=== PATIENT | male | born 1955 | race Caucasian/White ===

== ENCOUNTER 2018-01-29 02:40 | Inpatient (IN) | payer MEDICARE, MEDICAID, OTHER ==
[~2018-01-29] VITALS: Ht 177.8 cm; Wt 72.7 kg
[~2018-01-29 02:40] MED LIST: ADV50100 IH; AZI25OT PO; BUSP10TA11 PO; PRED20TA PO; SIMBICORT; albuterol neb
[2018-01-29] MEDS ORDERED: methylPREDNISolone sod succ 125mg/2ml vial IV ONE (02:55)
[2018-01-29] MEDS ORDERED: albuterol 2.5 MG/3 ML nebule CONTNEB PRN (02:55)
[2018-01-29] MEDS ORDERED: azithromycin/NS 500mg/250ml 250 ML IV ONE (02:55)
[2018-01-29 03:10] LABS: ABG BASE EXCESS 0.5 mmol/L (-2.0-3.0); ABG HCO3 25.5 mmol/L (22.0-26.0); ABG OXYGEN SATURATION 96.2 % (95-98); ABG PCO2 (T) 42.5 mmHg (35.0-48.0); ABG PH (T) 7.396 (7.350-7.450); ABG PO2 (T) 82.6 mmHg (83-108); ALLEN'S TEST Positive; FCOHb 3.6 % (0.5-1.5); FMetHb 0.2 % (0.3-1.12); FO2Hb 92.5 % (94-100); RESPIRATORY RATE (OBSERVED) 22 b/min
[2018-01-29 03:29] LABS: BASOPHILS # (AUTO) 0.1 X10'3 (0-0.2); BASOPHILS % (AUTO) 0.3 % (0-1); EOSINOPHILS # (AUTO) 0.2 X10'3 (0-0.9); EOSINOPHILS % (AUTO) 1.3 % (0-6); HEMATOCRIT 39.3 % (42.0-52.0); HEMOGLOBIN 13.6 g/dl (14.0-17.9); LYMPHOCYTES # (AUTO) 1.8 X10'3 (1.1-4.8); LYMPHOCYTES % (AUTO) 9.3 % (21-51); MEAN CORPUSCULAR HEMOGLOBIN 31.4 PG (27.0-31.0); MEAN CORPUSCULAR HGB CONC 34.5 % (33.0-36.5); MEAN PLATELET VOLUME 8.2 FL (7.4-10.4); MONOCYTES % (AUTO) 5.2 % (2-12); NEUTROPHILS # (AUTO) 16.4 X10'3 (1.8-7.7); NEUTROPHILS % (AUTO) 83.9 % (42-75); PLATELET COUNT 254 X10'3 (140-440); RED BLOOD COUNT 4.32 X10'6 (4.70-6.10); RED CELL DISTRIBUTION WIDTH 15.4 % (11.5-14.5); WHITE BLOOD COUNT 19.5 X10'3 (4.5-11.0)
[2018-01-29] MEDS ORDERED: ondansetron/PF 4mg/2ml inj IV ONE (03:35)
[2018-01-29 03:53] LABS: ALANINE AMINOTRANSFERASE 25 U/L (12-78); ALBUMIN 3.6 G/DL (3.4-5.0); ALBUMIN/GLOBULIN RATIO 1.1 (1.1-1.5); ALKALINE PHOSPHATASE 101 IU/L (46-116); ANION GAP 9 (8-16); ASPARTATE AMINO TRANSFERASE 15 U/L (10-37); BILIRUBIN,TOTAL 0.6 MG/DL (0.1-1.0); BLOOD UREA NITROGEN 15 MG/DL (7-18); BUN/CREATININE RATIO 18.1 (5.4-32.0); CALCIUM 9.4 MG/DL (8.5-10.1); CHLORIDE 102 MMOL/L (99-107); CREATININE 0.83 MG/DL (0.60-1.10); GLUCOSE 122 MG/DL (70-104); POTASSIUM 4.4 MMOL/L (3.5-5.1); SODIUM 138 MMOL/L (135-145); TOTAL CARBON DIOXIDE 27.2 MMOL/L (24-32); TOTAL PROTEIN 6.8 G/DL (6.4-8.2); eGFR > 90 ML/MIN
[2018-01-29 04:18] LABS: URINE AMPHETAMINE SCREEN NEGATIVE (Neg); URINE BARBITUATE SCREEN NEGATIVE (Neg); URINE BENZODIAZEPINES SCREEN NEGATIVE (Neg); URINE CANNABINOID SCREEN NEGATIVE (Neg); URINE COCAINE SCREEN NEGATIVE (Neg); URINE METHADONE SCREEN NEGATIVE (Neg); URINE OPIATE SCREEN NEGATIVE (Neg); URINE PHENCYCLIDINE SCREEN NEGATIVE (Neg)
[2018-01-29] MEDS ORDERED: magnesium hydroxide 30ml (MOM) UD suspension PO PRN (05:05)
[2018-01-29] MEDS ORDERED: mag hydrox/Alum hydrox/simeth 30ml oral suspension PO PRN (05:05)
[2018-01-29] MEDS ORDERED: ondansetron/PF 4mg/2ml inj IV PRN (05:05)
[2018-01-29] MEDS ORDERED: acetaminophen 325mg tablet PO PRN (05:05)
[2018-01-29] MEDS: methylPREDNISolone sod succ 125mg/2ml vial IV SCH ×3 (08:00→20:16)
[2018-01-29] MEDS: enoxaparin 40mg/0.4ml syringe SUBCUT SCH (08:01)
[2018-01-29] MEDS: ipratropium/albuterol 3ml nebule NEB PRN (10:28)
[2018-01-29] MEDS: ALPRAZolam 0.25mg tablet PO PRN ×2 (10:35→17:16)
[2018-01-29 15:48] VITALS: BP 129/75
[2018-01-29 19:30] VITALS: BP 108/71
[2018-01-29] MEDS: acetaminophen 325mg tablet PO PRN (20:32)
[2018-01-29] MEDS ORDERED: nicotine 7mg patch - 24hr TD SCH (21:00)
[2018-01-29] MEDS ORDERED: HYDROcodone/acetaminophen 10/325mg tab PO ONE (23:45)
[2018-01-30] VITALS: BP 105/39
[2018-01-30] MEDS: ipratropium/albuterol 3ml nebule NEB PRN ×2 (01:00→14:02)
[2018-01-30] MEDS: methylPREDNISolone sod succ 125mg/2ml vial IV SCH ×2 (01:37→07:23)
[2018-01-30 05:11] LABS: BASOPHILS # (AUTO) 0.1 X10'3 (0-0.2); BASOPHILS % (AUTO) 0.3 % (0-1); EOSINOPHILS % (AUTO) 0 % (0-6); HEMATOCRIT 38.1 % (42.0-52.0); HEMOGLOBIN 12.9 g/dl (14.0-17.9); LYMPHOCYTES % (AUTO) 5.1 % (21-51); MEAN CORPUSCULAR HEMOGLOBIN 31.1 PG (27.0-31.0); MEAN CORPUSCULAR HGB CONC 33.8 % (33.0-36.5); MEAN CORPUSCULAR VOLUME 91.9 FL (78-98); MEAN PLATELET VOLUME 8.7 FL (7.4-10.4); MONOCYTES # (AUTO) 0.2 X10'3 (0-0.9); MONOCYTES % (AUTO) 1.2 % (2-12); NEUTROPHILS # (AUTO) 17.8 X10'3 (1.8-7.7); NEUTROPHILS % (AUTO) 93.4 % (42-75); PLATELET COUNT 248 X10'3 (140-440); RED BLOOD COUNT 4.15 X10'6 (4.70-6.10); RED CELL DISTRIBUTION WIDTH 15.6 % (11.5-14.5)
[2018-01-30 05:19] LABS: ALBUMIN 3.5 G/DL (3.4-5.0); ANION GAP 8 (8-16); BLOOD UREA NITROGEN 31 MG/DL (7-18); BUN/CREATININE RATIO 29.2 (5.4-32.0); CALCIUM 9.6 MG/DL (8.5-10.1); CHLORIDE 102 MMOL/L (99-107); CREATININE 1.06 MG/DL (0.60-1.10); GLUCOSE 199 MG/DL (70-104); POTASSIUM 4.9 MMOL/L (3.5-5.1); SODIUM 138 MMOL/L (135-145); eGFR 71 ML/MIN
[2018-01-30] MEDS: enoxaparin 40mg/0.4ml syringe SUBCUT SCH (07:24)
[2018-01-30] MEDS: ALPRAZolam 0.25mg tablet PO PRN (07:26)
[2018-01-30 07:30] VITALS: BP 116/72
[2018-01-30] MEDS ORDERED: azithromycin 250mg tablet PO SCH (08:00)
[2018-01-30] MEDS ORDERED: nicotine 7mg patch - 24hr TD SCH (08:00)
[2018-01-30 11:45] VITALS: BP 112/70
[2018-01-30] MEDS ORDERED: methylPREDNISolone sod succ 125mg/2ml vial IV SCH (14:00)
[2018-01-30] MEDS: acetaminophen 325mg tablet PO PRN (15:21)
[2018-01-30] MEDS ORDERED: lactobacillus rhamnosus 10,000 MMU CELLS/CAPSULE PO SCH (20:00)
== END 2018-01-30 18:17 | disposition left against medical advice (07) | DRG 191 ==
LOC: ER 02:41 → ED HOLD 05:02 → SUR 3N 15:43
PROVIDERS: ADMIT Internal Medicine; ATTEND Hospitalist
DX: J44.1 Chronic obstructive pulmonary disease with (acute) exacerbation (principal); J96.10 Chronic respiratory failure, unspecified whether with hypoxia or hypercapnia; Z99.81 Dependence on supplemental oxygen; D72.829 Elevated white blood cell count, unspecified; R07.81 Pleurodynia; F32.9 Major depressive disorder, single episode, unspecified; F15.10 Other stimulant abuse, uncomplicated; F17.210 Nicotine dependence, cigarettes, uncomplicated; Z66 Do not resuscitate; Z53.21 Procedure and treatment not carried out due to patient leaving prior to being seen by health care provider; Z90.49 Acquired absence of other specified parts of digestive tract; Z79.899 Other long term (current) drug therapy; Z71.6 Tobacco abuse counseling
CPT/HCPCS: 36415; 36600; 71045; 80048; 80053; 80305; 82803; 83605; 83735; 83880; 84484; 85018; 85025; 87040; 87070; 93005; 94640; 94760; A6258; J0456; J1650; J2405; J2930